=== PATIENT | female | born 1960 | race Caucasian/White ===

== ENCOUNTER → 2017-11-30 19:56 | Emergency (ER) | payer OTHER ==
[~2017-11-30 19:56] MED LIST: CRESTOR5 MG PO; LANTUS 3 M100 UNITS1 SC; LEVOTHYROXINE50 MCG PO; NOVOLOG PE100 UNITS/ SC; RAMIPRIL1.25 MG PO; VITAMIN D32000 UNI1 PO
== END | disposition left against medical advice (07) ==
LOC: EME 19:56
DX: E16.2 Hypoglycemia, unspecified (principal); Z53.21 Procedure and treatment not carried out due to patient leaving prior to being seen by health care provider
CPT/HCPCS: 82948